=== PATIENT | female | born 1995 | race Caucasian/White ===

== ENCOUNTER 2016-09-23 23:11 | Emergency (ER) | payer OTHER ==
[~2016-09-23] VITALS: Ht 165.1 cm; Wt 65.9 kg
[2016-09-24 00:20] LABS: INFLUENZA TYPE B NEGATIVE FOR TYPE B (NEGATIVE)
[2016-09-24] MEDS ORDERED: PENICILLIN V POTASSIUM 500 MG TABLET PO ONE (03:30)
[2016-09-24] MEDS ORDERED: IBUPROFEN 600 MG TABLET PO ONE (03:30)
[2016-09-24] MEDS ORDERED: SUCRALFATE 1 GM/10 ML SUSPENSION UDCUP PO ONE (03:30)
[2016-09-24 03:44] VITALS: BP 120/80
[2016-09-24] MEDS ORDERED: TraMADol HCL 50 MG TABLET PO ONE (03:45)
== END 2016-09-24 03:46 | disposition home or self-care (01) ==
LOC: EMS 23:17
DX: J02.9 Acute pharyngitis, unspecified (principal)
CPT/HCPCS: 87430; 87804; 99284